=== PATIENT | female | born 1940 | race Caucasian/White ===

== ENCOUNTER 2020-12-29 16:48 | Emergency (ER) | payer OTHER ==
[~2020-12-29] VITALS: Ht 162.6 cm; Wt 65.5 kg
[2020-12-29] MEDS ORDERED: diltiazem 5mg/ml 5ml inj. IV ONE (17:25)
[2020-12-29 17:54] LABS: BASOPHILS % (AUTO) 0.4 % (0-1); HEMATOCRIT 49.2 % (35.0-45.0); HEMOGLOBIN 16.6 g/dl (12.0-16.0); LYMPHOCYTES # (AUTO) 1.6 X10'3 (1.1-4.8); LYMPHOCYTES % (AUTO) 30.5 % (21-51); MEAN CORPUSCULAR HEMOGLOBIN 28.9 PG (27.0-31.0); MEAN CORPUSCULAR HGB CONC 33.8 g/dL (33.0-36.5); MEAN CORPUSCULAR VOLUME 85.6 FL (78-98); MEAN PLATELET VOLUME 8.8 FL (7.4-10.4); MONOCYTES # (AUTO) 0.6 X10'3 (0-0.9); MONOCYTES % (AUTO) 11.8 % (2-12); NEUTROPHILS # (AUTO) 2.9 X10'3 (1.8-7.7); NEUTROPHILS % (AUTO) 56.3 % (42-75); PLATELET COUNT 167 X10'3 (140-440); RED BLOOD COUNT 5.74 X10'6 (4.20-5.60); RED CELL DISTRIBUTION WIDTH 12.9 % (11.5-14.5); WHITE BLOOD COUNT 5.1 X10'3 (4.5-11.0)
[2020-12-29 18:11] LABS: ALANINE AMINOTRANSFERASE 30 U/L (12-78); ALBUMIN 3.8 G/DL (3.4-5.0); ALKALINE PHOSPHATASE 93 IU/L (46-116); ANION GAP 11 (8-16); ASPARTATE AMINO TRANSFERASE 29 U/L (10-37); BILIRUBIN,TOTAL 0.4 MG/DL (0.1-1.0); BLOOD UREA NITROGEN 17 MG/DL (7-18); BUN/CREATININE RATIO 24.3 (6.6-38.0); CALCIUM 9.1 MG/DL (8.5-10.1); CHLORIDE 103 MMOL/L (99-107); GLUCOSE 102 MG/DL (70-104); POTASSIUM 3.9 MMOL/L (3.5-5.1); SODIUM 137 MMOL/L (135-145); TOTAL CARBON DIOXIDE 23.4 MMOL/L (24-32); TOTAL PROTEIN 7.5 G/DL (6.4-8.2); eGFR 81 ML/MIN
[2020-12-29 18:18] LABS: C-REACTIVE PROTEIN 0.53 MG/DL (0.0-0.5)
[2020-12-29] MEDS ORDERED: iohexol 350MG/ML 100ml bottle IV ONE (18:31)
--- NOTE | 2020-12-29 18:51 | NUR ---
TO CT SCAN.
[2020-12-29] MEDS ORDERED: AZIT500T PO (19:29)
[2020-12-29] MEDS ORDERED: DEC4T PO (19:29)
[2020-12-29] MEDS ORDERED: ALBU6.7H9 INH (19:29)
[2020-12-29 19:52] VITALS: BP 105/63
== END 2020-12-29 19:52 | disposition home or self-care (01) ==
LOC: ER 16:49
DX: U07.1 COVID-19 (principal); J40 Bronchitis, not specified as acute or chronic; I48.0 Paroxysmal atrial fibrillation; R53.1 Weakness; R06.02 Shortness of breath; Z79.2 Long term (current) use of antibiotics; Z79.899 Other long term (current) drug therapy
CPT/HCPCS: 36415; 71045; 71275; 80053; 83880; 84145; 84484; 85025; 85379; 86140; 87635; 93005; 96374; 99291; C9803; Q9967; J3490

== ENCOUNTER 2021-04-18 11:34 | Inpatient (IN) | payer MEDICARE, OTHER ==
[~2021-04-18] VITALS: Ht 162.6 cm; Wt 61.4 kg
[~2021-04-18 11:34] MED LIST: ALBU6.7H9 INH
[2021-04-18 12:08] LABS: BASOPHILS # (AUTO) 0.1 X10'3 (0-0.2); BASOPHILS % (AUTO) 0.6 % (0-1); EOSINOPHILS # (AUTO) 0.5 X10'3 (0-0.9); EOSINOPHILS % (AUTO) 5.6 % (0-6); HEMATOCRIT 43.5 % (35.0-45.0); HEMOGLOBIN 14.6 g/dl (12.0-16.0); LYMPHOCYTES # (AUTO) 1.4 X10'3 (1.1-4.8); LYMPHOCYTES % (AUTO) 14.9 % (21-51); MEAN CORPUSCULAR HEMOGLOBIN 28.3 PG (27.0-31.0); MEAN CORPUSCULAR HGB CONC 33.6 g/dL (33.0-36.5); MEAN CORPUSCULAR VOLUME 84.2 FL (78-98); MEAN PLATELET VOLUME 8.2 FL (7.4-10.4); MONOCYTES # (AUTO) 0.7 X10'3 (0-0.9); MONOCYTES % (AUTO) 7.9 % (2-12); NEUTROPHILS # (AUTO) 6.5 X10'3 (1.8-7.7); PLATELET COUNT 216 X10'3 (140-440); RED BLOOD COUNT 5.17 X10'6 (4.20-5.60); RED CELL DISTRIBUTION WIDTH 13.4 % (11.5-14.5); WHITE BLOOD COUNT 9.1 X10'3 (4.5-11.0)
[2021-04-18 12:22] LABS: ALANINE AMINOTRANSFERASE 19 U/L (12-78); ALBUMIN 3.7 G/DL (3.4-5.0); ALBUMIN/GLOBULIN RATIO 0.9 (1.1-1.5); ALKALINE PHOSPHATASE 93 IU/L (46-116); ANION GAP 8 (8-16); ASPARTATE AMINO TRANSFERASE 15 U/L (10-37); BILIRUBIN,TOTAL 0.4 MG/DL (0.1-1.0); BLOOD UREA NITROGEN 17 MG/DL (7-18); BUN/CREATININE RATIO 20.7 (6.6-38.0); CALCIUM 9.1 MG/DL (8.5-10.1); CHLORIDE 102 MMOL/L (99-107); CREATININE 0.82 MG/DL (0.40-0.90); GLUCOSE 106 MG/DL (70-104); POTASSIUM 4.5 MMOL/L (3.5-5.1); SODIUM 139 MMOL/L (135-145); TOTAL CARBON DIOXIDE 29.5 MMOL/L (24-32); TOTAL PROTEIN 7.7 G/DL (6.4-8.2); eGFR 67 ML/MIN
[2021-04-18 12:28] LABS: D-DIMER 0.45 MG/L FEU (0-0.50)
[2021-04-18] MEDS ORDERED: dexamethasone sod phosphate 10mg/ml inj IV STA (12:47)
[2021-04-18] MEDS ORDERED: diltiazem 5mg/ml 5ml inj. IV ONE (12:50)
[2021-04-18] MEDS ORDERED: CefTRIAXone 2gm/D5W 50ml BAG 50 ML IV ONE (12:50)
[2021-04-18] MEDS ORDERED: NO HOME MEDS (13:11)
[2021-04-18] MEDS ORDERED: magnesium hydroxide 30ml (MOM) UD suspension PO PRN (14:05)
[2021-04-18] MEDS ORDERED: magnesium 4gm in 100ml NS 100 ML IV PRN (14:05)
[2021-04-18] MEDS ORDERED: morphine 2 MG/ML inj. syringe IV PRN ×2 (14:05)
[2021-04-18] MEDS ORDERED: mag hydrox/Alum hydrox/simeth 30ml oral suspension PO PRN (14:05)
[2021-04-18] MEDS ORDERED: potassium CL 10mEq/100ml bag 100 ML IV PRN (14:05)
[2021-04-18] MEDS ORDERED: magnesium Cl slow-release 64mg tablet PO PRN (14:05)
[2021-04-18] MEDS ORDERED: enoxaparin 100mg/ml syringe SUBCUT ONE (14:05)
[2021-04-18] MEDS ORDERED: magnesium 2GM in 50ml NS 50 ML IV PRN (14:05)
[2021-04-18] MEDS ORDERED: potassium Cl 20 mEq SR tablet PO PRN ×2 (14:05)
[2021-04-18] MEDS ORDERED: ondansetron/PF 4mg/2ml inj IV PRN (14:05)
[2021-04-18] MEDS ORDERED: acetaminophen 325mg tablet PO PRN ×2 (14:05)
[2021-04-18 14:51] LABS: POTASSIUM 4.6 MMOL/L (3.5-5.1)
[2021-04-18] MEDS: docusate sod 100mg capsule PO SCH (20:00)
[2021-04-18] MEDS: K and/or MAG REPLACEMENT MC SCH (20:00)
[2021-04-18 21:00] VITALS: BP 115/40
--- NOTE | 2021-04-18 21:00 | NUR ---
Assumed patient care. patient came to unit via stretcher. Pt on Room air with 95 % Oxygen saturation, BP 115/40 Pulse 95, Temp 99.0. Patient on TELE box [address] Patient denies any pain at this time. Patient alert and oriented x 4. Patient bed placed in lowest position and locked. Bedside table and call light within reach. Please see patient chart for further assessment.
[2021-04-18 22:00] VITALS: BP 108/66
[2021-04-19 02:00] VITALS: BP 114/63
--- NOTE | 2021-04-19 06:07 | NUR ---
Problems reprioritized. Patient report given, questions answered & plan of care reviewed with Karla LIN.
--- NOTE | 2021-04-19 06:58 | NUR ---
Patient in room PCU 3012. I have received report from Karla LIN and had the opportunity to ask questions and assume patient care.
[2021-04-19 07:00] VITALS: BP 114/52
[2021-04-19 07:48] LABS: BASOPHILS % (AUTO) 0.3 % (0-1); EOSINOPHILS % (AUTO) 0.1 % (0-6); HEMATOCRIT 41.5 % (35.0-45.0); HEMOGLOBIN 13.8 g/dl (12.0-16.0); LYMPHOCYTES # (AUTO) 1.5 X10'3 (1.1-4.8); LYMPHOCYTES % (AUTO) 22.9 % (21-51); MEAN CORPUSCULAR HEMOGLOBIN 28.1 PG (27.0-31.0); MEAN CORPUSCULAR HGB CONC 33.2 g/dL (33.0-36.5); MEAN CORPUSCULAR VOLUME 84.6 FL (78-98); MEAN PLATELET VOLUME 8.9 FL (7.4-10.4); MONOCYTES # (AUTO) 0.5 X10'3 (0-0.9); MONOCYTES % (AUTO) 8.1 % (2-12); NEUTROPHILS # (AUTO) 4.6 X10'3 (1.8-7.7); NEUTROPHILS % (AUTO) 68.6 % (42-75); PLATELET COUNT 212 X10'3 (140-440); RED CELL DISTRIBUTION WIDTH 13.3 % (11.5-14.5); WHITE BLOOD COUNT 6.7 X10'3 (4.5-11.0)
[2021-04-19] MEDS: K and/or MAG REPLACEMENT MC SCH (08:00)
[2021-04-19] MEDS ORDERED: aspirin 81mg, enteric-coated 1 TAB TABLET.DR PO SCH (08:00)
[2021-04-19 08:01] LABS: ALBUMIN 3.2 G/DL (3.4-5.0); ANION GAP 11 (8-16); BLOOD UREA NITROGEN 21 MG/DL (7-18); BUN/CREATININE RATIO 32.3 (6.6-38.0); CALCIUM 8.9 MG/DL (8.5-10.1); CHLORIDE 104 MMOL/L (99-107); CREATININE 0.65 MG/DL (0.40-0.90); GLUCOSE 131 MG/DL (70-104); MAGNESIUM 2.2 MG/DL (1.5-2.4); POTASSIUM 4.4 MMOL/L (3.5-5.1); SODIUM 139 MMOL/L (135-145); TOTAL CARBON DIOXIDE 24.5 MMOL/L (24-32); eGFR 88 ML/MIN
[2021-04-19] MEDS ORDERED: APIX5TAB3 PO (09:13)
[2021-04-19] MEDS ORDERED: LEVO750T46 PO (09:13)
--- NOTE | 2021-04-19 09:51 | NUR ---
Dr Lara called and gave order to give pt one 5mg tab of eloquis prior to discharge. Addendum: 04/19/21 at 0952 by Miguelina Garcia RN SRIRAM
[2021-04-19] MEDS ORDERED: apixaban 5mg tablet PO ONE (09:55)
[2021-04-19] MEDS: docusate sod 100mg capsule PO SCH (10:29)
[2021-04-19 11:00] VITALS: BP 102/51
[2021-04-19] MEDS ORDERED: levoFLOXACIN 750MG TABLET PO SCH (11:00)
--- NOTE | 2021-04-19 14:21 | NUR ---
Pt stable for discharge per MD order. PIV discontinued. cannula intact. tele monitor discontinued. All discharge instructions explained. all questions answered. extensive pt education completed related to AFIB and eliquis. pt verbalized understanding. New Rx hard copies given to pt (eliquis and levoquin.) extensive pt education related to levoquin on empty stomach, not with dairy and to complete entire dosing. pt verbalized understanding. all belongings collected. pt wheeled to the [facility] per request where she waited for her grandaughter to pick her up in a private vehicle. pt left without sob or s/sx acute distress
== END 2021-04-19 14:21 | disposition home or self-care (01) | DRG 203 ==
LOC: ER 11:35 → ED HOLD 14:08 → PCU 3S 20:30
PROVIDERS: ADMIT Internal Medicine; ATTEND Internal Medicine
DX: J20.9 Acute bronchitis, unspecified (principal); I48.0 Paroxysmal atrial fibrillation; Z86.16 Personal history of COVID-19; Z79.01 Long term (current) use of anticoagulants; Z90.710 Acquired absence of both cervix and uterus; Z90.49 Acquired absence of other specified parts of digestive tract
CPT/HCPCS: 36415; 71045; 80048; 80053; 83735; 83880; 84132; 84443; 84484; 85025; 85379; 85610; 87081; 93005; 93306; 96365; 96375; 99285; G0378; J0696; J1100; J1650; J3490